=== PATIENT | female | born 1955 | race Two or more races ===

== ENCOUNTER 2017-05-27 11:05 | Emergency (ER) | payer BC ==
[2017-05-27] MEDS ORDERED: Sodium Chloride 0.9% 1,000 ML IV ONE (11:41)
[2017-05-27] MEDS ORDERED: Ondansetron 4 MG/2 ML SDV IVPUSH ONE ×2 (11:41→12:07)
[2017-05-27] MEDS ORDERED: Sodium Chloride 0.9% 5 ML Syringe FLUSH PRN (11:41)
[2017-05-27] MEDS ORDERED: Lidocaine 1% with EPINEPHrine 1:100,000 20 ML MDV INJECT ONE (11:42)
[2017-05-27] MEDS ORDERED: Lidocaine 2% with EPINEPHrine 1:200,000 20 ML SDV ONE (11:47)
[2017-05-27] MEDS ORDERED: Ondansetron 4 MG/2 ML SDV ONE (12:08)
--- NOTE | 2017-05-27 12:08 | EDM.PDOC ---
ED HPI GENERAL MEDICAL PROBLEM - General Chief Complaint: Head Injury Stated Complaint: fall Time Seen by Provider: 05/27/17 11:41 Source of Information: Reports: Patient, Family ( and son) History Limitations: Reports: No Limitations - History of Present Illness INITIAL COMMENTS - FREE TEXT/NARRATIVE: UNWITNESSED FALL BETWEEN 0950 AND 1030 THIS AM. SON SPOKE TO MOTHER AT 0950 AND ALL WAS FINE. SPOKE TO HER AT 1030 AND SHE TOLD HIM SHE WAS BLEEDING. DAUGHTER WENT TO HOUSE AND FOUND HER SITTING ON COUCH. BLOOD IN BATHROOM AND BEDROOM BUT PT DOES NOT REMEMBER FALLING. PRESENTED TO ER VIA PRIVATE CAR AND VOMITING. DENIES LOC, NECK PAIN, ANY OTHER TRAUMA, RECENT ILLNESS, OR VISION CHANGE Onset: Today Onset Date: 05/27/17 Duration: Hour(s): Location: Reports: Head Quality: Reports: Ache, Pressure Severity: Moderate Improves with: Reports: None Worsens with: Reports: None Context: Reports: Trauma Associated Symptoms: Reports: Headaches, Nausea/Vomiting - Related Data Allergies Allergy/AdvReac Type Severity Reaction Status Date / Time No Known Drug Allergies Allergy Other Verified 05/27/17 11:22 Home Meds: Home Meds atorvaSTATin Calcium [Atorvastatin Calcium] 10 mg PO DAILY 05/27/17 [History] ED ROS GENERAL - Review of Systems Review Of Systems: ROS reveals no pertinent complaints other than HPI. Constitutional: Reports: No Symptoms HEENT: Reports: No Symptoms Respiratory: Reports: No Symptoms Cardiovascular: Reports: No Symptoms Endocrine: Reports: No Symptoms GI/Abdominal: Reports: No Symptoms : Reports: No Symptoms Musculoskeletal: Reports: No Symptoms. Denies: Neck Pain Skin: Reports: No Symptoms Neurological: Reports: Confusion, Headache. Denies: Pre-Existing Deficit, Trouble Speaking Psychiatric: Reports: No Symptoms Hematologic/Lymphatic: Reports: No Symptoms Immunologic: Reports: No Symptoms ED EXAM, HEAD INJURY - Physical Exam Exam: See Below Exam Limited By: Other (CONFUSION) General Appearance: Alert, Mild Distress Head: Normocephalic, Scalp Lacerations, Scalp Swelling, Scalp Hematoma. No: Atraumatic, Villarreal's Sign, Facial Abrasions, Facial Ecchymosis, Facial Lacerations, Facial Swelling, Sinus Tenderness, Raccoon Eyes Nexus Criteria: No: Posterior, Midline Cervical Tenderness, Evidence of Intoxication, Altered Level of Consciousness, Focal Neurological Deficit Eyes: Bilateral Eye: Normal Inspection Ears: Normal External Exam, Normal Canal, Normal TMs Nose: Normal Inspection, No Blood Throat/Mouth: Normal Inspection, Normal Oropharynx, No Airway Compromise Neck: Non-Tender, Full Range of Motion, Normal Alignment, Normal Inspection Respiratory: No Respiratory Distress, Lungs Clear, Normal Breath Sounds, No Accessory Muscle Use Cardiovascular: Regular Rate, Rhythm GI/Abdominal Exam: Normal Bowel Sounds, Soft, Non-Tender Back Exam: Normal Inspection, Full Range of Motion Extremities: Normal Inspection, Non-Tender, No Pedal Edema Neurologic: Alert, Other (CONFUSED BUT ALERT ) Skin: Normal Color, Warm/Dry - [place] Coma Score Best Eye Response ([place]): (4) Open Spontaneously Best Verbal Response ([place]): (4) Confused Conversation Best Motor Response ([place]): (6) Obeys Commands Jerrell Total: 14 ED LACERATION/WOUND & KELLY PROC - Laceration/Wound Repair Posterior Head Lac/wound length in cm: 2.5 Appearance: Superficial Anesthetic Type: Local Local Anesthesia - Lidocaine (Xylocaine): 2% with EPI Local Anesthetic Volume: 3cc Skin Prep: Providone-Iodine (Betadine) Closed with: [place] Course - Vital Signs Last Recorded V/S: Last Vital Signs Temp 97.4 F 05/27/17 11:10 Pulse 72 05/27/17 11:10 Resp 16 05/27/17 11:10 BP 119/53 L 05/27/17 11:10 Pulse Ox 93 L 05/27/17 11:10 - Orders/Labs/Meds Orders: Active Orders 24 hr Category Date Time Status Peripheral IV Care [RC] . DIRECTED Care 05/27/17 11:41 Ordered Head wo Cont [CT] Stat Exams 05/27/17 11:17 Taken CBC WITH AUTO DIFF [HEME] Stat Lab 05/27/17 11:57 Ordered COMPREHENSIVE METABOLIC PN,CMP [CHEM] Stat Lab 05/27/17 11:57 Ordered INR,PT,PROTHROMBIN TIME [COAG] Stat Lab 05/27/17 11:57 Ordered PTT,PARTIAL THROMBOPLSTIN TIME [COAG] Stat Lab 05/27/17 11:57 Ordered Sodium Chloride 0.9% @ 999 MLS/HR (1000ml) Med 05/27/17 11:41 Ordered Sodium Chloride 0.9% [Normal Saline] 1,000 ml IV .BOLUS Sodium Chloride 0.9% [Syrex Flush] Med 05/27/17 11:41 Ordered 5 ml FLUSH Q8HR PRN Peripheral IV Insertion Adult [OM.PC] Routine Oth 05/27/17 11:41 Ordered Medication Orders Sodium Chloride (Normal Saline) 1,000 mls @ 999 mls/hr IV .BOLUS ONE Stop: 05/27/17 12:41 Last Admin: 05/27/17 12:01 Dose: 999 mls/hr Sodium Chloride (Syrex Flush) 5 ml FLUSH Q8HR PRN PRN Reason: Keep Vein Open Meds: Medications Generic Name Dose Route Start Last Admin Trade Name Freq PRN Reason Stop Dose Admin Sodium Chloride 1,000 mls @ 999 mls/hr 05/27/17 11:41 05/27/17 12:01 Normal Saline IV 05/27/17 12:41 999 mls/hr .BOLUS ONE Administration Sodium Chloride 5 ml 05/27/17 11:41 Syrex Flush FLUSH Q8HR PRN Keep Vein Open Discontinued Medications Generic Name Dose Route Start Last Admin Trade Name Freq PRN Reason Stop Dose Admin Lidocaine/Epinephrine 3 ml 05/27/17 11:42 05/27/17 12:01 Xylocaine 1% With Epinephrine 1:100,000 INJECT 05/27/17 11:43 Not Given ONETIME ONE Lidocaine/Epinephrine Confirm 05/27/17 11:47 05/27/17 12:00 Xylocaine-Mpf 2%-Epi 1:200,000 Administered 05/27/17 11:48 3 ml Dose Administration 20 ml .ROUTE .STK-MED ONE Ondansetron HCl 4 mg 05/27/17 11:41 05/27/17 12:00 Zofran IVPUSH 05/27/17 11:42 4 mg ONETIME ONE Administration - Re-Assessments/Exams Free Text/Narrative Re-Assessment/Exam: 05/27/17 12:17 PT AFEBRILE, VSS, SCALP LACERATION CLOSED WITH RED. DISCUSSED CASE WITH DR WARD, NEUROSURGERY AT [facility]. WILL ACCEPT TRANSFER [facility]IA [facility] 05/27/17 12:18 Departure - Departure Time of Disposition: 12:21 Disposition: DC/Tfer to Acute Hospital 02 Condition: Serious Clinical Impression: Subdural hemorrhage - Discharge Information Instructions: Head Injury, Adult, [id number] Referrals: PCP,None [Primary Care Provider] - Forms: ED Department Discharge, Interfacility Transfer TIA - My Orders Last 24 Hours: My Active Orders 05/27/17 11:17 Head wo Cont [CT] Stat 05/27/17 11:41 Peripheral IV Care [RC] . DIRECTED Sodium Chloride 0.9% @ 999 MLS/HR (1000ml) Sodium Chloride 0.9% [Normal Saline] 1,000 ml IV .BOLUS Sodium Chloride 0.9% [Syrex Flush] 5 ml FLUSH Q8HR PRN Peripheral IV Insertion Adult [OM.PC] Routine 05/27/17 11:57 CBC WITH AUTO DIFF [HEME] Stat COMPREHENSIVE METABOLIC PN,CMP [CHEM] Stat INR,PT,PROTHROMBIN TIME [COAG] Stat PTT,PARTIAL THROMBOPLSTIN TIME [COAG] Stat - Assessment/Plan Last 24 Hours: My Active Orders 05/27/17 11:17 Head wo Cont [CT] Stat 05/27/17 11:41 Peripheral IV Care [RC] . DIRECTED Sodium Chloride 0.9% @ 999 MLS/HR (1000ml) Sodium Chloride 0.9% [Normal Saline] 1,000 ml IV .BOLUS Sodium Chloride 0.9% [Syrex Flush] 5 ml FLUSH Q8HR PRN Peripheral IV Insertion Adult [OM.PC] Routine 05/27/17 11:57 CBC WITH AUTO DIFF [HEME] Stat COMPREHENSIVE METABOLIC PN,CMP [CHEM] Stat INR,PT,PROTHROMBIN TIME [COAG] Stat PTT,PARTIAL THROMBOPLSTIN TIME [COAG] Stat Assessment:: HEAD INJURY WITH SUBDURAL HEMMORRHAGE Plan: TRANSFER TO [facility]
[2017-05-27] MEDS ORDERED: fentaNYL 250 MCG/5 ML SDV IVPUSH ONE (12:17)
[2017-05-27] MEDS ORDERED: fentaNYL 100 MCG/2 ML SDV ONE (12:22)
[2017-05-27 12:40] VITALS: BP 114/54
[2017-05-27 12:54] LABS: CHLORIDE,CL 106 mmol/L (98-115); SODIUM,NA 140 mmol/L (136-145)
[2017-05-27] MEDS ORDERED: Sodium Chloride 0.9% 1,000 ML ONE (13:15)
== END 2017-05-27 13:00 ==
LOC: KA.ED 11:05
DX: S06.5X0A Traumatic subdural hemorrhage without loss of consciousness, initial encounter (principal); S01.01XA Laceration without foreign body of scalp, initial encounter; Z79.899 Other long term (current) drug therapy; W19.XXXA Unspecified fall, initial encounter
CPT/HCPCS: 12001; 36415; 70450; 80053; 85025; 85610; 85730; 96361; 96374; 96375; 96376; 99285; J2405; J3010; J7030